=== PATIENT | female | born 2000 | race Caucasian/White ===

== ENCOUNTER 2020-09-07 21:48 | Emergency (ER) | payer OTHER | END 2020-09-07 23:40 | disposition home or self-care (01) | LOC: FER 21:48 | DX: R07.2 Precordial pain (principal); F41.0 Panic disorder [episodic paroxysmal anxiety]; J45.909 Unspecified asthma, uncomplicated; F17.290 Nicotine dependence, other tobacco product, uncomplicated | CPT/HCPCS: 71045; 84703; 93005 ==